=== PATIENT | female | born 1970 | race Hispanic/Latino ===

== ENCOUNTER 2018-02-07 04:05 | Emergency (ER) | payer OTHER ==
[2018-02-07] MEDS ORDERED: HYDROCODONE/APAP 5/325 MG TAB ONE (05:09)
--- NOTE | 2018-02-07 05:36 | ER ---
Nurse's Notes [facility] Name: Dianne Ely Age: 47 yrs Sex: Female : 1970 Arrival Date: 02/07/2018 Time: 04:09 Bed 19 Private MD: Jory Solano Diagnosis: Sprain of other ligament of left ankle Presentation: 02/07 04:20 Presenting complaint: Patient states: "I fell last night at about 2000. I could walk at [facility], but now it hurts bad enough I can't walk.". Transition of care: patient was not received from another setting of care. Onset of symptoms was February 07, 2018. Risk Assessment: Do you want to hurt yourself or someone else? Patient reports no desire to harm self or others. Initial Sepsis Screen: Does the patient meet any 2 criteria? No. Patient's initial sepsis screen is negative. Does the patient have a suspected source of infection? No. Patient's initial sepsis screen is negative. Care prior to arrival: None. 04:20 Method Of Arrival: Wheelchair j 04:20 Acuity: CALVIN 3 jd3 Triage Assessment: 04:36 Injury Description: Bruise sustained to left foot. 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 jd3 Historical: - Allergies: 04:33 No Known Allergies; jd3 - Home Meds: 04:33 levothyroxine 75 mcg tab [Active]; Lantus Sub-Q [Active]; Novolog Sub-Q [Active]; jd3 Invokana 300 mg oral tab [Active]; lisinopril 40 mg Oral tab [Active]; amlodipine 10 mg tab [Active]; carvedilol 6.25 mg oral tab [Active]; rosuvastatin 10 mg oral tab [Active]; Janumet XR 100-1,000 mg oral TM24 [Active]; Fish Oil oral oral [Active]; niacin 500 mg Oral tab [Active]; Vitamin D Oral [Active]; magnesium oxide 400 mg Oral cap [Active]; - PMHx: 04:33 Hypertension; High Cholesterol; Diabetes - IDDM; hyper thyroid; jd3 - PSHx: 04:33 ; Hysterectomy; jd3 - Immunization history:: Adult Immunizations up to date. - Social history:: Smoking status: Patient/guardian denies using tobacco, Patient/guardian denies using alcohol, street drugs, The patient lives with family. - Ebola Screening: : Patient negative for fever greater than or equal to 101.5 degrees Fahrenheit, and additional compatible Ebola Virus Disease symptoms. - Family history:: not pertinent. Screenin:36 Abuse screen: Denies threats or abuse. Nutritional screening: No deficits noted. jd3 Tuberculosis screening: No symptoms or risk factors identified. Fall Risk Fall in past 12 months (25 points). Ambulatory Aid- None/Bed Rest/Nurse Assist (0 pts). Gait- Weak (10 pts.). Mental Status- Oriented to own ability (0 pts). Total Tsang Fall Scale indicates Low Risk Score (25-44 pts). Fall prevention measures have been instituted. Side Rails Up X 2 Placed close to Nursing Station Frequent Obs/Assesments occuring Family Present and informed to notify staff if they need to leave bedside. Assessment: 04:34 General: Appears uncomfortable, Behavior is cooperative, appropriate for age, anxious. jd3 Pain: Complains of pain in left foot Quality of pain is described as sharp, tender. Neuro: Level of Consciousness is awake, alert, obeys commands, Oriented to person, place, time, situation, Appropriate for age. Cardiovascular: Capillary refill < 3 seconds Patient's skin is warm and dry. Respiratory: Airway is patent Respiratory effort is even, unlabored, Respiratory pattern is regular, symmetrical. GI: No signs and/or symptoms were reported involving the gastrointestinal system. : No signs and/or symptoms were reported regarding the genitourinary system. EENT: No signs and/or symptoms were reported regarding the EENT system. Derm: Skin is intact, Skin is dry, Skin is normal, Skin temperature is warm Bruising that is dark purple, on left foot. Musculoskeletal: Circulation, motion, and sensation intact. Range of motion: limited in left ankle. 05:08 Reassessment: Patient appears in no apparent distress at this time. No changes from jd3 previously documented assessment. Patient and/or family updated on plan of care and expected duration. Pain level reassessed. Patient is alert, oriented x 3, equal unlabored respirations, skin warm/dry/pink. 05:59 Reassessment: Patient appears in no apparent distress at this time. Patient and/or jd3 family updated on plan of care and expected duration. Pain level reassessed. Patient is alert, oriented x 3, equal unlabored respirations, skin warm/dry/pink. Patient states feeling better. Vital Signs: 04:33 BP 149 / 74; Pulse 77; Resp 18 S; Temp 98.7(O); Pulse Ox 99% on R/A; Weight 90.72 kg jd3 (R); Height 5 ft. 0 in. (152.40 cm) (R); Pain 10/10; 05:08 BP 120 / 99; Pulse 65; Resp 17 S; Pulse Ox 95% on R/A; jd3 05:58 BP 116 / 81; Pulse 62; Resp 16 S; Pulse Ox 97% on R/A; jd3 04:33 Body Mass Index 39.06 (90.72 kg, 152.40 cm) jd3 ED Course: 04:09 Patient arrived in ED. es 04:09 Jory Solano MD is Private Physician. es 04:11 Maxime Macedo RN is Primary Nurse. jd3 04:12 Yoav Aguirre MD is Attending Physician. ma2 04:24 Triage completed. jd3 04:34 Arm band placed on. jd3 04:37 Patient has correct armband on for positive identification. Bed in low position. Call jd3 light in reach. Side rails up X 1. Adult w/ patient. 05:03 X-ray completed. Portable x-ray completed in exam room. Patient tolerated procedure kw well. 05:04 Foot Left 3 View XRAY In Process Unspecified. EDMS 05:04 Ankle Left 3 View XRAY In Process Unspecified. EDMS 05:59 No provider procedures requiring assistance completed. Patient did not have IV access jd3 during this emergency room visit. Ortho shoe applied to left foot. Administered Medications: 05:03 Drug: [place] 5 mg-325 mg 1 tabs Route: PO; jd3 05:58 Follow up: Response: No adverse reaction jd3 05:47 CANCELLED (order clarification): hard sole shoe 1 units Topical Per protocol fc Outcome: 05:35 Discharge ordered by . ma2 05:59 Discharged to home ambulatory, with family. jd3 05:59 Condition: stable 05:59 Discharge instructions given to patient, family, Instructed on discharge instructions, follow up and referral plans. Demonstrated understanding of instructions, follow-up care. 05:59 Patient left the ED. jd3 Signatures: Dispatcher [employer] Michelle Hillman Kimberlee kw Davies, Jonathon, RN RN jd3 Yoav Aguirre MD MD ma2 Mame Calix RN fc
--- NOTE | 2018-02-07 05:36 | EDPHYS ---
Physician Documentation [facility] Name: Dianne Ely Age: 47 yrs Sex: Female : 1970 Arrival Date: 02/07/2018 Time: 04:09 Bed 19 Private MD: Jory Solano ED Physician Yoav Aguirre HPI: 02/07 05:35 This 47 yrs old Female presents to ER via Wheelchair with complaints of Foot ma2 Injury. 04:33 The complaints affect the left foot. Context: The problem was sustained at home, ma2 resulted from the patient falling, the patient can partially bear weight. Onset: The symptoms/episode began/occurred suddenly, 1 day(s) ago. Associated signs and symptoms: Pertinent negatives: calf tenderness, nausea, numbness, swelling, vomiting, warmth. Severity of symptoms: At their worst the symptoms were moderate, in the emergency department the symptoms are unchanged. The patient has not experienced similar symptoms in the past. 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 jd3 Historical: - Allergies: 04:33 No Known Allergies; jd3 - Home Meds: 04:33 levothyroxine 75 mcg tab [Active]; Lantus Sub-Q [Active]; Novolog Sub-Q [Active]; jd3 Invokana 300 mg oral tab [Active]; lisinopril 40 mg Oral tab [Active]; amlodipine 10 mg tab [Active]; carvedilol 6.25 mg oral tab [Active]; rosuvastatin 10 mg oral tab [Active]; Janumet XR 100-1,000 mg oral TM24 [Active]; Fish Oil oral oral [Active]; niacin 500 mg Oral tab [Active]; Vitamin D Oral [Active]; magnesium oxide 400 mg Oral cap [Active]; - PMHx: 04:33 Hypertension; High Cholesterol; Diabetes - IDDM; hyper thyroid; jd3 - PSHx: 04:33 ; Hysterectomy; jd3 - Immunization history:: Adult Immunizations up to date. - Social history:: Smoking status: Patient/guardian denies using tobacco, Patient/guardian denies using alcohol, street drugs, The patient lives with family. - Ebola Screening: : Patient negative for fever greater than or equal to 101.5 degrees Fahrenheit, and additional compatible Ebola Virus Disease symptoms. - Family history:: not pertinent. ROS: 04:33 MS/extremity: Positive for pain, Negative for injury or acute deformity, bite, ma2 deformity, ecchymosis, rash, tenderness, warmth. 04:33 Constitutional: Negative for fever, chills, and weight loss, ENT: Negative for injury, pain, and discharge, Abdomen/GI: Negative for abdominal pain, nausea, diarrhea, and constipation. 04:33 All other systems are negative. Exam: 04:33 Constitutional: This is a well developed, well nourished patient who is awake, alert, ma2 and in no acute distress. Head/Face: Normocephalic, atraumatic. Neck: Trachea midline, no thyromegaly or masses palpated, and no cervical lymphadenopathy. Supple, full range of motion without nuchal rigidity, or vertebral point tenderness. No Meningismus. Abdomen/GI: Soft, non-tender, with normal bowel sounds. No distension or tympany. No guarding or rebound. No evidence of tenderness throughout. Back: No spinal tenderness. No costovertebral tenderness. Full range of motion. Skin: Warm, dry with normal turgor. Normal color with no rashes, no lesions, and no evidence of cellulitis. Neuro: Awake and alert, GCS 15, oriented to person, place, time, and situation. Cranial nerves II-XII grossly intact. Motor strength 5/5 in all extremities. Sensory grossly intact. Cerebellar exam normal. Normal gait. 04:33 Musculoskeletal/extremity: ROM: limited passive range of motion, left foot and ankle, ttp 5th metatarsal . Vital Signs: 04:33 BP 149 / 74; Pulse 77; Resp 18 S; Temp 98.7(O); Pulse Ox 99% on R/A; Weight 90.72 kg jd3 (R); Height 5 ft. 0 in. (152.40 cm) (R); Pain 10/10; 05:08 BP 120 / 99; Pulse 65; Resp 17 S; Pulse Ox 95% on R/A; jd3 05:58 BP 116 / 81; Pulse 62; Resp 16 S; Pulse Ox 97% on R/A; jd3 04:33 Body Mass Index 39.06 (90.72 kg, 152.40 cm) jd3 MDM: 04:12 Patient medically screened. ma2 04:33 Differential diagnosis: fracture, sprain, foreign body, arthritis, gout. ma2 05:34 Data reviewed: vital signs, nurses notes. Test interpretation: by ED physician or ma2 midlevel provider: plain radiologic studies. Counseling: I had a detailed discussion with the patient and/or guardian regarding: the historical points, exam findings, and any diagnostic results supporting the discharge/admit diagnosis, the presence of at least one elevated blood pressure reading (>120/80) during this emergency department visit, the need for outpatient follow up. Response to treatment: the patient's symptoms have markedly improved after treatment. 02/07 04:23 Order name: Foot Left 3 View XRAY [facility] 02/07 04:23 Order name: Ankle Left 3 View XRAY [facility] 02/07 05:47 Order name: Post-op shoe; Complete Time: 05:52 fc Administered Medications: 05:03 Drug: [place] 5 mg-325 mg 1 tabs Route: PO; [facility] 05:58 Follow up: Response: No adverse reaction [facility] 05:47 CANCELLED (order clarification): hard sole shoe 1 units Topical Per protocol fc Disposition: 02/07/18 05:35 Discharged to Home. Impression: Sprain of other ligament of left ankle. - Condition is Stable. - Discharge Instructions: Ankle Sprain, [id number]. - Medication Reconciliation Form, Thank You Letter, Antibiotic Education, Prescription Opioid Use form. - Follow up: Private Physician; When: Tomorrow; Reason: Continuance of care. - Problem is new. - Symptoms have improved. Signatures: Dispatcher [employer] EDMS Mame Calix RN RN Maxime Macedo RN RN jd3 Yoav Aguirre MD MD [facility] Corrections: (The following items were deleted from the chart) 05:47 05:36 hard sole shoe 1 units Topical Per protocol ordered. [facility] 05:59 05:35 02/07/2018 05:35 Discharged to Home. Impression: Sprain of other ligament of left jd3 ankle. Condition is Stable. Forms are Medication Reconciliation Form, Thank You Letter, Antibiotic Education, Prescription Opioid Use. Follow up: Private Physician; When: Tomorrow; Reason: Continuance of care. Problem is new. Symptoms have improved. [facility]
--- NOTE | 2018-02-07 10:30 | RAD REPORT ---
EXAM DESCRIPTION: RAD - Ankle Left 3 View - 02/07/2018 5:04 am CLINICAL HISTORY: PAIN Fall COMPARISON: None FINDINGS: Left ankle and foot, multiple projections are submitted. Mild soft tissue swelling is present. No acute fracture or dislocation is seen.
== END 2018-02-07 05:59 | disposition home or self-care (01) ==
LOC: MERGE 04:05 → ER 04:05
DX: S93.492A Sprain of other ligament of left ankle, initial encounter (principal); W19.XXXA Unspecified fall, initial encounter; Y93.9 Activity, unspecified; Y92.009 Unspecified place in unspecified non-institutional (private) residence as the place of occurrence of the external cause; Z79.4 Long term (current) use of insulin; I10 Essential (primary) hypertension; E11.9 Type 2 diabetes mellitus without complications; E78.00 Pure hypercholesterolemia, unspecified
CPT/HCPCS: 99283

== ENCOUNTER 2018-09-14 18:21 | Emergency (ER) | payer OTHER ==
--- OUTSIDE RECORDS SUMMARY | 2018-09-14 19:51 | XMS REPORT ---
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 Problem Allergic rhinitis J30.9 Active Problem Hypertension I10 Active Problem Hyperlipidemia E78.5 Active Problem Vitamin D deficiency E55.9 Active Problem Morbid obesity E66.01 Active Problem Obesity E66.9 Active Problem Hypothyroidism E03.9 Active Medications Medication Code Code Instructions Start End Status Dosage System Date Date [facility] [id number] 100 UNIT/ML Jul 12, Active 10 units KwikPen Subcutaneous 2018 and once daily titrate up 2 units every 2 days until fasting glucose less 130 max of 30 units daily Results No Known Results Summary Purpose [employer] Submission
--- OUTSIDE RECORDS SUMMARY | 2018-09-14 19:51 | XMS REPORT ---
:1970 Author Organization [employer] Care Team Providers Name Role Phone Solano, Na Provider Role Unavailable Allergies, Adverse Reactions, Alerts Substance Reaction Event Type N.K.D.A. Info Not Available Non Drug Allergy Problems Problem Type Condition Code Onset Dates Condition Status Problem Type 2 diabetes mellitus with E11.65 Active hyperglycemia Problem Type 2 diabetes E11.9 Active Problem detention current use of insulin Z79.4 Active Problem Allergic rhinitis J30.9 Active Problem Hypertension I10 Active Problem Hyperlipidemia E78.5 Active Problem Vitamin D deficiency E55.9 Active Problem Morbid obesity E66.01 Active Problem Obesity E66.9 Active Problem Hypothyroidism E03.9 Active Assessment Hyperlipidemia E78.5 Active Assessment Hypertension I10 Active Assessment Vitamin D deficiency E55.9 Active Assessment detention current use of insulin Z79.4 Active Assessment Hypothyroidism E03.9 Active Assessment Type 2 diabetes mellitus with E11.65 Active hyperglycemia Medications Medication Code Code Instructions Start End Status Dosage System Date Date Eucrisa [facility] 03193317803 2 % Externally Active 1 application Twice a day to affected area Humalog [facility] 89677693453 100 UNIT/ML Active not defined KwikPen Subcutaneous NovoLog [facility] 58902959028 100 UNIT/ML Active 10 units Flexpen Subcutaneous prior to once a day dinner Invokana [facility] 79337061059 300 MG Orally Active 1 tablet Once a day Synthroid [facility] 95939555888 75 MCG Orally March Active 1 tablet on Once a day 07, an empty 2018 stomach in the morning Lantus ND 15346191051 100 UNIT/ML Active not defined SoloStar Subcutaneous Crestor ND 90014439991 10 MG Orally Active 1 tablet Once a day Niacin [facility] 35439499824 500 MG Orally Active 1 tablet with Once a day food Norvasc [facility] 00620203366 10 MG Orally Active 1 tablet Once a day Lisinopril [facility] 03983529435 40 MG Orally Active 1 tablet Once a day Niaspan [facility] [address]-53 1000 MG Orally Active 1 tablet at twice a day bedtime Pravastatin [facility] 25662025158 40 MG Orally Inactive 1 tablet Sodium Once a day Coreg [facility] 68527009942 6.25 MG Orally July Active as directed twice daily 2017 Lantus [facility] 11588985416 100 UNIT/ML Active 40 units and Subcutaneous titrate up 2 once a day units every 2 days until FBG less 120 (max of 50 units daily ) Bystolic [facility] [address]-75 2.5 MG Orally Active 1 tablet Once a day Ibuprofen [facility] [address]-14 800 MG Orally Active 1 tablet with Twice a day food or milk as needed Janumet XR [facility] 41609104138 100-1000 MG Active 1 tablet with Orally Once a evening meal day Results No Known Results Summary Purpose [employer] Submission
--- NOTE | 2018-09-14 20:36 | RAD REPORT ---
EXAM DESCRIPTION: RAD - Chest Single View - 09/14/2018 8:29 pm CLINICAL HISTORY: CHEST PAIN Chest pain. COMPARISON: No comparisons FINDINGS: Portable technique limits examination quality. The lungs are grossly clear. The heart is normal in size. No displaced fractures. IMPRESSION: No acute intrathoracic process suspected.
[2018-09-14 20:45] LABS: Absolute Lymphocytes (CBC) 1.9 K/uL (0.7-4.9); Absolute Monocytes 0.7 K/uL (0.1-1.3); Absolute Neutrophil 6.9 K/uL (1.8-8.0); Basophils % 0.8 % (0-1.3); Eosinophils % 0.9 % (0-4.4); Hematocrit 46.7 % (36.0-45.0); Lymphocytes % 20.2 % (15.3-44.8); MPV 8.4 fL (7.6-11.3); Monocytes % 6.9 % (3.3-12.3); RBC Red Blood Cell Count 5.48 M/uL (3.86-4.86)
[2018-09-14 20:50] LABS: Protime INR 0.97
[2018-09-14 21:01] LABS: ALT/SGPT 37 U/L (12-78); AST/SGOT 16 U/L (15-37); Albumin 4.5 g/dL (3.4-5.0); Alkaline Phosphatase 90 U/L (45-117); BUN Blood Urea Nitrogen 20 mg/dL (7-18); Bicarbonate 22 mmol/L (21-32); Bilirubin Direct 0.2 mg/dL (0-0.2); Bilirubin Total 0.8 mg/dL (0.2-1.0); Glucose Level 133 mg/dL (74-106); Lipase 120 U/L (73-393); Magnesium 2.1 mg/dL (1.8-2.4); NT PRO-BNP 12 pg/mL (<125); Potassium 3.8 mmol/L (3.5-5.1); Protein, Total 8.7 g/dL (6.4-8.2); Sodium Level 136 mmol/L (136-145); Troponin (Emerg Dept Use Only) < 0.02 ng/mL (0.0-0.045)
[2018-09-14] MEDS ORDERED: AMLODIPINE 5 MG TAB ONE (21:06)
[2018-09-14 21:07] LABS: Urine Blood NEGATIVE (NEG); Urine Glucose 2+ (NEG); Urine Protein 2+ (NEG)
--- NOTE | 2018-09-14 21:53 | EDPHYS ---
Physician Documentation [facility] Name: Dianne Kinney Age: 48 yrs Sex: Female : 1970 Arrival Date: 09/14/2018 Time: 18:23 Bed 16 Private MD: TOM Physician Ed Connor HPI: 09/14 20:06 This 48 yrs old Female presents to ER via Ambulatory with complaints of High juanis Blood Pressure. 20:06 The patient has elevated blood pressure and discovered this at home. Onset: The juanis symptoms/episode began/occurred this morning, today. Modifying factors: The symptoms are aggravated by activity, The symptoms are alleviated by remaining still. Associated signs and symptoms: The patient has no apparent associated signs or symptoms. The patient has not experienced similar symptoms in the past. Historical: - Allergies: 18:35 No Known Allergies; sv - Home Meds: 18:37 levothyroxine 75 mcg tab [Active]; Invokana 300 mg Oral tab [Active]; carvedilol 6.25 sv mg Oral tab [Active]; lisinopril 40 mg Oral tab [Active]; rosuvastatin 10 mg Oral tab [Active]; amlodipine 10 mg tab [Active]; Janumet XR 100-1,000 mg Oral TM24 [Active]; Novolog Flexpen subcutaneous subcutaneous [Active]; Basaglar 30 units [Active]; - PMHx: 18:35 Diabetes - IDDM; High Cholesterol; hyper thyroid; Hypertension; sv - PSHx: 18:35 ; Hysterectomy; sv - Family history:: not pertinent. ROS: 20:06 Constitutional: Negative for fever, chills, and weight loss, Eyes: Negative for injury, juanis pain, redness, and discharge, ENT: Negative for injury, pain, and discharge, Neck: Negative for injury, pain, and swelling, Cardiovascular: Negative for chest pain, palpitations, and edema, Respiratory: Negative for shortness of breath, cough, wheezing, and pleuritic chest pain, Abdomen/GI: Negative for abdominal pain, nausea, vomiting, diarrhea, and constipation, Back: Negative for injury and pain, : Negative for injury, bleeding, discharge, and swelling, MS/Extremity: Negative for injury and deformity, Skin: Negative for injury, rash, and discoloration, Psych: Negative for depression, anxiety, suicide ideation, homicidal ideation, and hallucinations, Allergy/Immunology: Negative for hives, rash, and allergies, Endocrine: Negative for neck swelling, polydipsia, polyuria, polyphagia, and marked weight changes, Hematologic/Lymphatic: Negative for swollen nodes, abnormal bleeding, and unusual bruising. 20:06 Neuro: Positive for headache. Exam: 20:06 Constitutional: This is a well developed, well nourished patient who is awake, alert, juanis and in no acute distress. Head/Face: Normocephalic, atraumatic. Eyes: Pupils equal round and reactive to light, extra-ocular motions intact. Lids and lashes normal. Conjunctiva and sclera are non-icteric and not injected. Cornea within normal limits. Periorbital areas with no swelling, redness, or edema. ENT: Nares patent. No nasal discharge, no septal abnormalities noted. Tympanic membranes are normal and external auditory canals are clear. Oropharynx with no redness, swelling, or masses, exudates, or evidence of obstruction, uvula midline. Mucous membranes moist. Neck: Trachea midline, no thyromegaly or masses palpated, and no cervical lymphadenopathy. Supple, full range of motion without nuchal rigidity, or vertebral point tenderness. No Meningismus. Chest/axilla: Normal chest wall appearance and motion. Nontender with no deformity. No lesions are appreciated. Cardiovascular: Regular rate and rhythm with a normal S1 and S2. No gallops, murmurs, or rubs. Normal PMI, no JVD. No pulse deficits. Respiratory: Lungs have equal breath sounds bilaterally, clear to auscultation and percussion. No rales, rhonchi or wheezes noted. No increased work of breathing, no retractions or nasal flaring. Abdomen/GI: Soft, non-tender, with normal bowel sounds. No distension or tympany. No guarding or rebound. No evidence of tenderness throughout. Back: No spinal tenderness. No costovertebral tenderness. Full range of motion. Skin: Warm, dry with normal turgor. Normal color with no rashes, no lesions, and no evidence of cellulitis. MS/ Extremity: Pulses equal, no cyanosis. Neurovascular intact. Full, normal range of motion. Neuro: Awake and alert, GCS 15, oriented to person, place, time, and situation. Cranial nerves II-XII grossly intact. Motor strength 5/5 in all extremities. Sensory grossly intact. Cerebellar exam normal. Normal gait. Psych: Awake, alert, with orientation to person, place and time. Behavior, mood, and affect are within normal limits. Vital Signs: 18:35 BP 162 / 101; Pulse 103; Resp 18; Temp 98.4; Pulse Ox 97% ; Weight 90.72 kg; Height 5 sv ft. 0 in. (152.40 cm); Pain 0/10; 19:02 BP 182 / 107; Pulse 87; Resp 16; Pulse Ox 97% on R/A; jb4 20:00 BP 162 / 108; Pulse 67; Resp 16; Pulse Ox 98% on R/A; jb4 21:00 BP 153 / 97; Pulse 76; Resp 16; Pulse Ox 97% on R/A; jb4 21:55 BP 145 / 86; Pulse 78; Resp 16; Pulse Ox 98% on R/A; jb4 18:35 Body Mass Index 39.06 (90.72 kg, 152.40 cm) sv MDM: 19:23 Patient medically screened. [facility] 20:08 Data reviewed: vital signs, nurses notes, lab test result(s), EKG, radiologic studies. [facility] 09/14 20:06 Order name: Basic Metabolic Panel; Complete Time: 21:38 [facility] 09/14 20:06 Order name: CBC with Diff; Complete Time: 21:38 [facility] 09/14 20:06 Order name: LFT's; Complete Time: 21:38 [facility] 09/14 20:06 Order name: Magnesium; Complete Time: 21:38 [facility] 09/14 20:06 Order name: NT PRO-BNP; Complete Time: 21:38 [facility] 09/14 20:06 Order name: PT-INR; Complete Time: 21:38 [facility] 09/14 20:06 Order name: Troponin (emerg Dept Use Only); Complete Time: 21:38 [facility] 09/14 20:06 Order name: XRAY Chest (1 view); Complete Time: 21:38 [facility] 09/14 20:06 Order name: EKG; Complete Time: 20:07 [facility] 09/14 20:06 Order name: Lipase; Complete Time: 21:38 [facility] 09/14 20:06 Order name: Urine Culture [facility] 09/14 20:34 Order name: Urine Dipstick--Ancillary (enter results); Complete Time: 21:38 cm6 09/14 20:34 Order name: Urine --Ancillary (enter results); Complete Time: 21:38 6 09/14 20:06 Order name: Cardiac monitoring; Complete Time: 20:08 [facility] 09/14 20:06 Order name: EKG - Nurse/Tech; Complete Time: 20:45 [facility] 09/14 20:06 Order name: IV Saline Lock; Complete Time: 20:45 [facility] 09/14 20:06 Order name: Labs collected and sent; Complete Time: 20:45 [facility] 09/14 20:06 Order name: O2 Per Protocol; Complete Time: 20:07 [facility] 09/14 20:06 Order name: O2 Sat Monitoring; Complete Time: 20:07 [facility] 09/14 20:06 Order name: Urine Dipstick-Ancillary (obtain specimen); Complete Time: 20:44 [facility] Administered Medications: 21:12 Drug: Norvasc 10 mg Route: PO; [facility] 21:55 Follow up: Response: No adverse reaction; Blood pressure is lowered jb4 Disposition: 09/14/18 21:52 Discharged to Home. Impression: Essential (primary) hypertension. - Condition is Stable. - Discharge Instructions: Hypertension, Hypertension, Dmqu-[id number], How to Take Your Blood Pressure, Ylql-bz-Khum, Managing Your Hypertension, Type 1 Diabetes Mellitus, Self Care, Adult. - Prescriptions for Norvasc 5 mg Oral Tablet - take 1 tablet by ORAL route once daily; 20 tablet. - Medication Reconciliation Form, Thank You Letter, Antibiotic Education, Prescription Opioid Use form. - Follow up: Private Physician; When: 2 - 3 days; Reason: Recheck today's complaints, Continuance of care, Re-evaluation by your physician. Follow up: Kingsley Stover; When: 2 - 3 days; Reason: Recheck today's complaints, Re-evaluation by your physician. - Problem is new. - Symptoms have improved. Signatures: Dispatcher [employer] Zunilda Mendosa, Ed Pope RN, MD MD cha Bryson, James, RN RN jb4 Corrections: (The following items were deleted from the chart) 22:16 21:52 09/14/2018 21:52 Discharged to Home. Impression: Essential (primary) jb4 hypertension. Condition is Stable. Discharge Instructions: Hypertension, Hypertension, Dviz-jt-Ilpp, How to Take Your Blood Pressure, Wsai-ly-Orrz, Managing Your Hypertension, Type 1 Diabetes Mellitus, Self Care, Adult. Prescriptions for Norvasc 5 mg Oral Tablet - take 1 tablet by ORAL route once daily; 20 tablet. and Forms are Medication Reconciliation Form, Thank You Letter, Antibiotic Education, Prescription Opioid Use. Follow up: Private Physician; When: 2 - 3 days; Reason: Recheck today's complaints, Continuance of care, Re-evaluation by your physician. Follow up: Kingsley Stover; When: 2 - 3 days; Reason: Recheck today's complaints, Re-evaluation by your physician. Problem is new. Symptoms have improved. juanis
--- NOTE | 2018-09-14 21:53 | ER ---
Nurse's Notes [facility] Name: Dianne Kinney Age: 48 yrs Sex: Female : 1970 Arrival Date: 09/14/2018 Time: 18:23 Bed 16 Private MD: Diagnosis: Essential (primary) hypertension Presentation: 09/14 18:33 Presenting complaint: Patient states: HTN 177/124 started today, headache, nausea, sv "heart racing" Denies SOB, CP. Transition of care: patient was not received from another setting of care. Onset of symptoms was September 14, 2018. Care prior to arrival: None. 18:33 Method Of Arrival: Ambulatory sv 18:35 Initial Sepsis Screen: Does the patient meet any 2 criteria? No. Patient's initial sv sepsis screen is negative. Does the patient have a suspected source of infection? No. Patient's initial sepsis screen is negative. 18:38 Acuity: CALVIN 2 sv Triage Assessment: 18:33 General: Appears in no apparent distress. comfortable, well developed, Behavior is sv calm, cooperative, appropriate for age. Pain: Denies pain. Neuro: Level of Consciousness is awake, alert, obeys commands, Oriented to person, place, time, situation, Gait is steady, Speech is normal. Cardiovascular: Reports palpitations, Denies chest pain, shortness of breath. Respiratory: Airway is patent Respiratory effort is even, unlabored, Respiratory pattern is regular, symmetrical. Historical: - Allergies: 18:35 No Known Allergies; sv - Home Meds: 18:37 levothyroxine 75 mcg tab [Active]; Invokana 300 mg Oral tab [Active]; carvedilol 6.25 sv mg Oral tab [Active]; lisinopril 40 mg Oral tab [Active]; rosuvastatin 10 mg Oral tab [Active]; amlodipine 10 mg tab [Active]; Janumet XR 100-1,000 mg Oral TM24 [Active]; Novolog Flexpen subcutaneous subcutaneous [Active]; Basaglar 30 units [Active]; - PMHx: 18:35 Diabetes - IDDM; High Cholesterol; hyper thyroid; Hypertension; sv - PSHx: 18:35 ; Hysterectomy; sv - Family history:: not pertinent. Screenin:02 Abuse screen: Denies threats or abuse. Nutritional screening: No deficits noted. jb4 Tuberculosis screening: No symptoms or risk factors identified. Fall Risk None identified. Assessment: 19:15 General: Appears in no apparent distress. uncomfortable, Behavior is calm, cooperative, jb4 anxious. Pain: Complains of pain in headache. Pain does not radiate. Pain currently is 2 out of 10 on a pain scale. Quality of pain is described as aching. Neuro: Level of Consciousness is awake, alert, obeys commands, Oriented to person, place, time, situation. Cardiovascular: Heart tones S1 S2 present Patient's skin is warm and dry. Respiratory: Airway is patent Respiratory effort is even, unlabored, Respiratory pattern is regular, symmetrical, Breath sounds are clear bilaterally. GI: No signs and/or symptoms were reported involving the gastrointestinal system. : No signs and/or symptoms were reported regarding the genitourinary system. EENT: No signs and/or symptoms were reported regarding the EENT system. Derm: Skin is intact, Skin is pink, warm \\T\\ dry. Musculoskeletal: Circulation, motion, and sensation intact. 20:15 Reassessment: Patient appears in no apparent distress at this time. Patient and/or jb4 family updated on plan of care and expected duration. Pain level reassessed. Patient is alert, oriented x 3, equal unlabored respirations, skin warm/dry/pink. 21:15 Reassessment: Patient appears in no apparent distress at this time. Patient and/or jb4 family updated on plan of care and expected duration. Pain level reassessed. Patient is alert, oriented x 3, equal unlabored respirations, skin warm/dry/pink. 21:55 Reassessment: Patient appears in no apparent distress at this time. Patient and/or jb4 family updated on plan of care and expected duration. Pain level reassessed. Patient is alert, oriented x 3, equal unlabored respirations, skin warm/dry/pink. Pt left ED ambulatory with steady gait, IV d/c'ed. Left ED with family, no s/s of distress or pain noted. Verbalized understanding of d/c and follow up inscturctions. Vital Signs: 18:35 BP 162 / 101; Pulse 103; Resp 18; Temp 98.4; Pulse Ox 97% ; Weight 90.72 kg; Height 5 sv ft. 0 in. (152.40 cm); Pain 0/10; 19:02 BP 182 / 107; Pulse 87; Resp 16; Pulse Ox 97% on R/A; jb4 20:00 BP 162 / 108; Pulse 67; Resp 16; Pulse Ox 98% on R/A; jb4 21:00 BP 153 / 97; Pulse 76; Resp 16; Pulse Ox 97% on R/A; jb4 21:55 BP 145 / 86; Pulse 78; Resp 16; Pulse Ox 98% on R/A; jb4 18:35 Body Mass Index 39.06 (90.72 kg, 152.40 cm) ED Course: 18:23 Patient arrived in ED. as 18:35 Arm band placed on. sv 18:38 Triage completed. sv 19:02 Patient has correct armband on for positive identification. Bed in low position. Call jb4 light in reach. Side rails up X 1. Pulse ox on. NIBP on. 19:05 Marco Zafar, RN is Primary Nurse. jb4 19:23 Ed Connor MD is Attending Physician. [facility] 20:29 XRAY Chest (1 view) In Process Unspecified. EDMS 20:43 Inserted saline lock: 20 gauge in left antecubital area, using aseptic technique. Blood ag4 collected. 20:45 EKG done, by ED staff, reviewed by Ed Connor MD. ag4 21:52 Kingsley Stover MD is Referral Physician. juanis 21:55 No provider procedures requiring assistance completed. IV discontinued, intact, jb4 bleeding controlled. Administered Medications: 21:12 Drug: Norvasc 10 mg Route: PO; jb4 21:55 Follow up: Response: No adverse reaction; Blood pressure is lowered jb4 Outcome: 21:52 Discharge ordered by . juanis 21:55 Discharged to home ambulatory, with family. jb4 21:55 Condition: stable 21:55 Discharge instructions given to patient, family, Instructed on discharge instructions, follow up and referral plans. medication usage, Demonstrated understanding of instructions, follow-up care, medications. 22:16 Patient left the ED. jb4 Signatures: Dispatcher [employer] EDNY Zunilda Leyva RN RN sv Ed Connor MD MD cha Martinez, Amelia as Marco Zafar RN RN jb4 Ulysses Dixon ag4 Corrections: (The following items were deleted from the chart) 18:38 18:33 Presenting complaint: Patient states: HTN 177/124 started today, headache, sv nausea, "heart racing" sv 18:38 18:35 90.72 kg; Height 5 ft. 0 in.; BMI: 39.0; Pain 0/10; sv sv
--- NOTE | 2018-09-15 06:47 | EKG ---
Test Date: 2018-09-14 Test Time: 20:15:06 Lead Caster Helper: AG3 MEASUREMENT RESULTS: Intervals: Rate: 79 IN: 170 QRSD: 90 QT: 392 QTc: 449 [place]: P: 32 IN: 170 QRS: 49 T: 25 INTERPRETIVE STATEMENTS: Normal sinus rhythm Possible Anterior infarct, age undetermined Abnormal ECG Compared to ECG 02/15/2013 14:55:17 Myocardial infarct finding now present Electronically Signed On 09-15-18 06:46:49 CDT by Mino Luna
== END 2018-09-14 22:16 | disposition home or self-care (01) ==
LOC: ER 18:21
DX: I10 Essential (primary) hypertension (principal); E11.9 Type 2 diabetes mellitus without complications; E78.00 Pure hypercholesterolemia, unspecified; Z79.4 Long term (current) use of insulin
CPT/HCPCS: 36415; 71045; 80048; 80076; 81003; 81025; 83690; 83735; 83880; 84484; 85025; 85610; 87086; 87088; 93005; 99284

== ENCOUNTER 2019-04-19 06:36 | Day surgery (SDC) | payer BC ==
--- NOTE | 2019-04-18 13:55 | RAD REPORT ---
EXAM DESCRIPTION: RAD - Chest Pa And Lat (2 Views) - 04/18/2019 1:37 pm CLINICAL HISTORY: preop, pending hernia surgery COMPARISON: September 14, 2018 TECHNIQUE: PA and lateral views of the chest were obtained. FINDINGS: The lungs are clear. Interstitial pattern matches comparison. Heart size is normal and ce ntral vasculature is within normal limits. No pleural effusion or pneumothorax seen. No acute bony finding noted. No aortic abnormality. IMPRESSION: No acute cardiopulmonary process.
[2019-04-18 15:16] LABS: Absolute Lymphocytes (CBC) 1.8 K/uL (0.7-4.9); Basophils % 0.4 % (0-1.3); Hematocrit 45.6 % (39.6-49.0); Lymphocytes % 19.5 % (15.3-44.8); MPV 9.3 fL (7.6-11.3); RBC Red Blood Cell Count 5.07 M/uL (4.33-5.43)
[2019-04-18 15:31] LABS: Potassium 4.3 mmol/L (3.5-5.1)
--- NOTE | 2019-04-18 22:55 | EKG ---
Test Date: 2019-04-18 Test Time: 13:13:18 Dock Operations Supervisor: EVER MEASUREMENT RESULTS: Intervals: Rate: 66 WI: 160 QRSD: 82 QT: 386 QTc: 404 [place]: P: 49 WI: 160 QRS: 14 T: 25 INTERPRETIVE STATEMENTS: Normal sinus rhythm Possible Left atrial enlargement Borderline ECG No previous ECG available for comparison Electronically Signed On 04-18-19 22:55:08 SALES PERFORMANCE ANALYST by Mino Luna
[2019-04-19] MEDS ORDERED: Ringers Lactate 1,000 ML IV ONE ×2 (06:40→08:59)
[2019-04-19] MEDS ORDERED: CEFAZOLIN/SWI 1gm 1 GM/10 ML SYR ONE (06:40)
[2019-04-19] MEDS ORDERED: propofoL 200 MG/20 ML VIAL IV ONE ×2 (07:07→09:00)
[2019-04-19] MEDS ORDERED: FENTANYL CITR 100 MCG/2 ML ONE ×2 (07:07→09:00)
[2019-04-19] MEDS ORDERED: LIDOCAINE 2% MPF 5 ML VIAL ONE ×2 (07:08→09:00)
[2019-04-19] MEDS ORDERED: dexAMETHasone 10 MG/ML VIAL ONE (07:08)
[2019-04-19] MEDS ORDERED: ROCURONIUM 50 MG/5 ML VIAL IV ONE (07:08)
[2019-04-19] MEDS ORDERED: MIDAZOLAM HCL 2 MG/2 ML INJ ONE ×2 (07:10→09:00)
[2019-04-19] MEDS ORDERED: ONDANSETRON 4 MG/2 ML VIAL ONE (07:11)
[2019-04-19] MEDS ORDERED: EPHEDRINE SULF 50 MG/ML VIAL ONE (07:31)
[2019-04-19] MEDS ORDERED: GLYCOPYRROLATE 0.2 MG/ML SYR ONE (07:39)
[2019-04-19] MEDS ORDERED: KETOROLAC 30 MG/ML INJ ONE (08:13)
[2019-04-19] MEDS: HYDROMORPHONE HCL 1 MG/ML INJ ONE ×2 (09:17→09:22)
[2019-04-19 09:57] VITALS: TEMP 97
[2019-04-19] MEDS ORDERED: HYDROCODONE/APAP 7.5/325 MG TAB PO ONE (09:59)
[2019-04-19] MEDS ORDERED: HYDROCODONE/APAP 7.5/325 MG TAB ONE (09:59)
[2019-04-19 10:47] VITALS: BP 153/96; O2SAT 98
--- NOTE | 2019-04-22 15:17 | OP ---
Date of Procedure: 04/19/2019 Surgeon: Ronaldo Peres MD Medical Office Professional Instructor: ESTRELLITA Joy Preoperative Diagnosis: Left inguinal hernia. Postoperative Diagnosis: Left inguinal hernia with a left hydrocele. Estimated Blood Loss: Minimal. Specimen: Hydrocele and hernia sac. Findings: As above. Anesthesia: General. Complications: None. Disposition: Patient tolerated the procedure in stable condition, taken to Recovery in good general condition. Procedure In Detail: Patient was brought to the OR and placed in supine position. General anesthesi a was begun. Patient was prepped and draped in the usual sterile fashion. Marcaine 0.5% was infiltr ated locally in a field block fashion. A 15-blade was used to make a 4 cm oblique incision between t he pubic tubercle, and the anterior iliac and superior spine. Subcutaneous tissue divided. Higinio's fascia was identified and divided. Aponeurosis was identified and mobilized inferiorly to expose sh elving edge, and it was very attenuated near the internal ring which was opened with blunt dissection and sharp dissection. The hernia sac was identified and freed from the surrounding structures after cord was mobilized at the pubic tubercle. The hernia sac was opened and there was a hydrocele prese nt, the testicles in the wound. At this point, Dr. Underwood discussed the case in detail with him an martha appropriate measures for hydrocelectomy and marsupialization was discussed and performed so the her nery sac was dissected all the way down to the internal ring and hydrocele part was excised. The chencho ining edges of the hydrocele were marsupialized with a running 3-0 chromic interlocking suture and a high ligation of the hernia sac was performed with 2-0 Prolene suture ligature and free hand ties. H ernia sac and hydrocele were sent to Pathology. Then, Marlex mesh plug was placed in the internal ri ng, secured with VersaTack stapler. Internal ring was placed on the inguinal floor, secured medially to the pubic tubercle, superior to the conjoined tendon, inferior to the shelving edge, laterally to each other. Then, cord structures placed back in anatomic location. A 1/4-inch Sixto drain was pl aced in the marsupialize hydrocele to limit the amount of fluid that would be retained in the scrotum as discussed with Dr. Crane and then 3-0 chromic was used to reapproximate Higinio's fascia and 3-0 c hromic used to close skin. 3-0 nylon used to secure the 1/4-inch [place] to the scrotal skin. Steri le dressing was applied. Patient was awakened and taken to Recovery in good general condition. Discharge Note: The patient will go to Day-Surgery, then home when stable. Disposition: Home. Condition: Stable. Discharge Instructions: Resume home medications and diet. Activity as tolerated. No heavy lifting. Keep dressing clean and dry with sponge bathe, ice pack, scrotal support Tylenol No. 3 one tablet p .o. q.4 p.r.n. pain and Keflex 500 mg p.o. q.6 h. /MODL Voice ID: [id number] Report ID: [id number]
== END 2019-04-19 10:45 | disposition home or self-care (01) ==
LOC: OR 06:36
PROVIDERS: ATTEND Surgery
PROC: 0VB70ZZ Excision of Left Tunica Vaginalis, Open Approach (ICD-10-PCS; 2019-04-19)
PROC: 0YU60JZ Supplement Left Inguinal Region with Synthetic Substitute, Open Approach (ICD-10-PCS; principal; 2019-04-19 07:30)
DX: K40.90 Unilateral inguinal hernia, without obstruction or gangrene, not specified as recurrent (principal); N43.3 Hydrocele, unspecified; I10 Essential (primary) hypertension
CPT/HCPCS: 93005; 85025; 80048; 36415; 88302; 71046; 49505; 55040; J2704; J2250; J3010; J1100; J1170; J0690; J7120 ×2; J2405